=== PATIENT | male | born 1985 | race Caucasian/White ===

== ENCOUNTER 2019-05-30 09:52 | Day surgery (SDC) | payer OTHER ==
[~2019-05-30] VITALS: Ht 190.5 cm; Wt 154.1 kg
[~2019-05-30 09:52] MED LIST: BENA20TA PO; NS 1,000 ML IV ONE; PROP120C PO; VITA100054 PO
[2019-05-30] MEDS ORDERED: fentaNYL 100 MCG/2 ML INJECTION (J3010) As Ordered ONE (11:02)
[2019-05-30] MEDS ORDERED: propofoL 500 MG/50 ML VIAL As Ordered ONE (11:04)
[2019-05-30] MEDS ORDERED: LIDOCAINE 2% INJ 100 MG/5 ML SDV (FOR ANES.) As Ordered ONE (11:47)
--- NOTE | 2019-05-30 12:32 | ROOR ---
Patient Name: William Veloz Procedure Date: 05/30/2019 12:14 PM Date of : 1985 Age: 33 Room: [facility] Gender: Male Note Status: Finalized Procedure: Upper Endoscopy + Biopsies Indications: Heartburn, Exclusion of Ag's esophagus, Diarrhea Providers: Garrison Allen MD Referring MD: Natali VALENTIN [facility] Natali VALENTIN [facility], Admin. Requesting Provider: Medicines: Monitored Anesthesia Care Complications: No immediate complications. Procedure: Pre-Anesthesia Assessment: - The heart rate, respiratory rate, oxygen saturations, blood pressure, adequacy of pulmonary ventilation, and response to care were monitored throughout the procedure. The Endoscope was introduced through the mouth, and advanced to the second part of duodenum. The upper GI endoscopy was accomplished without difficulty. The patient tolerated the procedure well. Findings: The Z-line was irregular and was found 40 cm from the incisors. Multiple biopsies were obtained with cold forceps for evaluation to rule out Ag's Esophagus randomly at the gastroesophageal junction. Esophagitis with no bleeding was found 40 cm from the incisors. The exam of the stomach was otherwise normal. Biopsies were taken with a cold forceps in the gastric antrum for Helicobacter pylori testing. The exam of the duodenum was otherwise normal. Biopsies for histology were taken with a cold forceps in the first portion of the duodenum for evaluation of celiac disease. The exam was otherwise without abnormality. Impression: - Z-line irregular, 40 cm from the incisors. - Reflux esophagitis. - The examination was otherwise normal. - Multiple biopsies were obtained at the gastroesophageal junction. - Biopsies were taken with a cold forceps for Helicobacter pylori testing. - Biopsies were taken with a cold forceps for evaluation of celiac disease. - The examination was otherwise normal. Recommendation: - Patient has a contact number available for emergencies. The signs and symptoms of potential delayed complications were discussed with the patient. Return to normal activities tomorrow. Written discharge instructions were provided to the patient. - High fiber diet. - Discharge patient to home. - Follow an antireflux regimen. - Continue present medications. - Await pathology results. - Telephone GI clinic for pathology results in 1 week. - Return to referring physician. - The findings and recommendations were discussed with the patient's family. Garrison Allen MD Garrison Allen MD 05/30/2019 12:31:46 PM Electronically signed by Garrison Allen MD Number of Addenda: 0 Note Initiated On: 05/30/2019 12:14 PM Estimated Blood Loss: Estimated blood loss: none.
[2019-05-30] MEDS ORDERED: hydrALAZINE INJ 20 MG/ML VIAL As Ordered ONE (12:35)
--- NOTE | 2019-05-30 12:47 | ROOR ---
Patient Name: William Veloz Procedure Date: 05/30/2019 12:15 PM Date of : 1985 Age: 33 Room: [facility] Gender: Male Note Status: Finalized Procedure: Total Colonoscopy to Cecum + ileoscopy + Bx Indications: Clinically significant diarrhea of unexplained origin Providers: Garrison Allen MD Referring MD: Natal[facility] VALENTIN [facility] Natali VALENTIN [facility], Admin. Requesting Provider: Medicines: Monitored Anesthesia Care Complications: No immediate complications. Procedure: Pre-Anesthesia Assessment: - The heart rate, respiratory rate, oxygen saturations, blood pressure, adequacy of pulmonary ventilation, and response to care were monitored throughout the procedure. The Colonoscope was introduced through the anus and advanced to the cecum, identified by appendiceal orifice and ileocecal valve. The colonoscopy was performed without difficulty. The patient tolerated the procedure well. The quality of the bowel preparation was excellent. Findings: The perianal and digital rectal examinations were normal. Non-bleeding internal hemorrhoids were found during retroflexion. The hemorrhoids were small and Grade I (internal hemorrhoids that do not prolapse). Scattered small-mouthed diverticula were found in the recto-sigmoid colon, sigmoid colon and descending colon. The terminal ileum appeared normal. Biopsies for histology were taken with a cold forceps from the cecum, right colon, transverse colon and descending colon for evaluation of microscopic colitis. The exam was otherwise without abnormality on direct and retroflexion views. Impression: - Non-bleeding internal hemorrhoids. - Diverticulosis in the recto-sigmoid colon, in the sigmoid colon and in the descending colon. - The examined portion of the ileum was normal. - The examination was otherwise normal on direct and retroflexion views. - Biopsies were taken with a cold forceps from the cecum, right colon, transverse colon and descending colon for evaluation of microscopic colitis. - The exam was otherwise normal to the cecum. Recommendation: - Patient has a contact number available for emergencies. The signs and symptoms of potential delayed complications were discussed with the patient. Return to normal activities tomorrow. Written discharge instructions were provided to the patient. - Resume previous diet. - Discharge patient to home. - Continue present medications. - Await pathology results. - Telephone GI clinic for pathology results in 1 week. - Return to referring physician. - The findings and recommendations were discussed with the patient's family. Garrison Allen MD Garrison Allen MD 05/30/2019 12:46:42 PM Electronically signed by Garrison Allen MD Number of Addenda: 0 Note Initiated On: 05/30/2019 12:15 PM Estimated Blood Loss: Estimated blood loss: none.
[2019-05-30 13:10] VITALS: BP 182/98
== END 2019-05-30 13:24 | disposition home or self-care (01) ==
LOC: M OPP 09:52
PROVIDERS: ATTEND Internal Medicine Gastroenterology
DX: K64.8 Other hemorrhoids (principal); K57.30 Diverticulosis of large intestine without perforation or abscess without bleeding; R19.7 Diarrhea, unspecified; K22.8 Other specified diseases of esophagus; K21.0 Gastro-esophageal reflux disease with esophagitis; R12 Heartburn; K29.50 Unspecified chronic gastritis without bleeding; Z79.899 Other long term (current) drug therapy
CPT/HCPCS: 43239; 45380; 88305; J3010

== ENCOUNTER → 2019-11-21 | Outpatient (CLI) | payer OTHER ==
[~2019-11-21] MED LIST changes: -NS 1,000 ML IV ONE
--- NOTE | 2019-11-21 23:27 | REP ---
FOOT: REASON: Atraumatic pain. PRIORS: None. FINDINGS: The joint spaces are symmetric and relatively well maintained. There is no evidence of acute fracture or destructive osseous lesion. IMPRESSION: Negative. There is a minimal retrocalcaneal heel spur. Electronically Signed by Darek Katz DO 11/22/2019 08:08 A
== END ==
LOC: M ADAMS 13:59
PROVIDERS: ATTEND Family Medicine
DX: M77.31 Calcaneal spur, right foot (principal)

== ENCOUNTER 2020-09-18 18:48 | Emergency (ER) | payer OTHER ==
[~2020-09-18] VITALS: Ht 190.5 cm; Wt 147.6 kg
[2020-09-18 21:13] LABS: BASO % 0.2 % (0.0-1.0); EOS # 0.1 10^3/uL (0.0-0.5); EOS % 0.9 % (0.0-3.0); HEMATOCRIT 48.4 % (42.0-52.0); HEMOGLOBIN 15.7 g/dl (13.5-17.5); LYMPH % 35.9 % (24.0-44.0); MEAN CORPUSCULAR HEMOGLOBIN 27.5 pg (27.0-33.0); MEAN CORPUSCULAR HGB CONC 32.4 g/dl (32.0-36.5); MEAN CORPUSCULAR VOLUME 84.9 fl (80.0-96.0); MONO # 0.4 10^3/uL (0.0-0.8); MONO % 7.2 % (2.0-8.0); NEUTROPHILS # 3.1 10^3/uL (1.5-8.5); NEUTROPHILS % 55.4 % (36.0-66.0); PLATELET COUNT, AUTOMATED 164 10^3/uL (150-450); WHITE BLOOD COUNT 5.7 10^3/uL (4.0-10.0)
[2020-09-18 21:47] LABS: BLOOD UREA NITROGEN 16 MG/DL (7-18); CALCIUM LEVEL 8.9 MG/DL (8.5-10.1); CARBON DIOXIDE LEVEL 28 MEQ/L (21-32); CHLORIDE LEVEL 104 MEQ/L (98-107); CREATININE FOR GFR 1.33 MG/DL (0.70-1.30); GLOMERULAR FILTRATION RATE > 60.0 (>60); GLUCOSE, FASTING 91 MG/DL (70-100); POTASSIUM SERUM 4.4 MEQ/L (3.5-5.1); SODIUM LEVEL 137 MEQ/L (136-145)
--- NOTE | 2020-09-18 23:04 | REPVR ---
PROCEDURE INFORMATION: Exam: XR Chest Exam date and time: 09/18/2020 9:36 PM Age: 35 years old Clinical indication: Other: SOB TECHNIQUE: Imaging protocol: XR of the chest. Views: 1 view. COMPARISON: No relevant prior studies available. FINDINGS: Lungs: Unremarkable. No consolidation. Pleural spaces: Unremarkable. No pleural effusion. No pneumothorax. Heart/Mediastinum: Unremarkable. No cardiomegaly. Bones/joints: Unremarkable. IMPRESSION: No acute findings. Electronically signed by: Meet Snow On 09/18/2020 23:04:05 PM
[2020-09-19 00:29] VITALS: BP 151/91
== END 2020-09-19 00:40 | disposition home or self-care (01) ==
LOC: M ED 18:48
DX: U07.1 COVID-19 (principal); I10 Essential (primary) hypertension; G47.33 Obstructive sleep apnea (adult) (pediatric); F41.9 Anxiety disorder, unspecified; Z79.899 Other long term (current) drug therapy

== ENCOUNTER 2020-09-18 23:17 | Outpatient (CLI) | payer OTHER ==
[~2020-09-18] VITALS: Ht 190.5 cm; Wt 147.3 kg
--- NOTE | 2020-09-18 23:24 | HPEPDOC ---
[facility] Medical History & Physical Date of Admission September 18, 2020 Date of Service: September 18, 2020 Primary Care Physician: GRETEL POND DO Attending Physician: CLAUDE BACON MD History and Physical TIME OF SERVICE: 11:47 CHIEF COMPLAINT: sent by PCP HISTORY OF PRESENT ILLNESS: This 35 yr old M developed FUCHS, cough, chest tightness, dyspnea, nausea and vomiting was diagnosed with COVID 19 about 9 days ago; his symptoms have not resolved; today his PCP called him and instructed him to come to the ER for MAB infusion. ROS:see HPI PAST MEDICAL/SURGICAL HISTORY: Essential HTN Chronic back pain Obesity SOCIAL HISTORY:He doesn't smoke FAMILY HISTORY: DM &HTN ALLERGIES: Please see below. HOME MEDICATIONS: Please see below. PHYSICAL EXAMINATION: Vital Signs Date Time Temp Pulse Resp B/P (MAP) Pulse Ox O2 Delivery O2 Flow Rate FiO2 09/18/20 22:48 78 20 136/66 (89) 97 Room Air 09/18/20 18:48 96.7 GENERAL APPEARANCE: well nourished and developed/ NAD INTEGUMENT: not flushed or diaphoretic HEENT: EOMI MUSCULOSKELETAL: AKIN x 4 NEUROLOGICAL: speech not dysarthric PSYCHIATRIC: A&Ox 3 / able to understand and follow all commands LABORATORY DATA: CBC & CMP reviewed, unremarkable except from Cr 1.33 from baseline of 1.22 IMAGING: chest xray "IMPRESSION: No acute findings." MICROBIOLOGY: COVID 19 ASSESSMENT: is a 35 yr old w HTN and obesity who was diagnosed w COVID-19 9 days ago, has had persistent symptoms and was sent by his PCP for out pt MAB infusion. PLAN: 1. COVID 19 Jenaro Mccauley botained consent Plan: will place COVID order set Home Medications Scheduled Benazepril Hcl (Benazepril HCl) 20 Mg Tablet, 1 TAB PO DAILY Cholecalciferol (Vitamin D3) (Vitamin D3) 1,000 Unit Capsule, 1 CAP PO DAILY Propranolol HCl (Propranolol HCl ER) 120 Mg Cap.sa.24h, 1 CAP PO DAILY Allergies Coded Allergies: No Known Allergies (Unverified , 05/28/19) A-FIB/CHADSVASC A-FIB History Current/History of A-Fib/PAF?: No Current PO Anticoag Therapy: No CLAUDE BACON MD September 18, 2020 23:24
[2020-09-19] MEDS ORDERED: diphenhydrAMINE 50MG/ML VIAL (J1200) IV PRN (01:00)
[2020-09-19] MEDS ORDERED: EPINEPHrine INJ 1 MG/ML 1ML AMP IM PRN (01:00)
[2020-09-19] MEDS ORDERED: BAMLANIVIMAB 700 MG, ETESEVIMAB 1,400 MG in NS 250 ML IV ONE (01:00)
[2020-09-19] MEDS ORDERED: methylPREDNISolone 125MG 2ML VIAL IV PRN (01:00)
[2020-09-19] MEDS ORDERED: ALBUTEROL SULFATE 2.5 MG/0.5 ML INH NEB SOLN INH PRN (01:00)
[2020-09-19] MEDS ORDERED: ALBUTEROL 90 MCG/ACT 8GM HFA INHALER INH PRN (01:00)
[2020-09-19] MEDS ORDERED: NS 1,000 ML IV SCH (01:00)
[2020-09-19 01:08] VITALS: BP 123/73
[2020-09-19 02:00] VITALS: BP 121/62
[2020-09-19 02:30] VITALS: BP 119/65
[2020-09-19 03:00] VITALS: BP 120/63
[2020-09-19 04:17] VITALS: BP 109/63
== END 2020-09-19 04:31 | disposition home or self-care (01) ==
LOC: M OPCLI4 23:17 → M 4MAIN 09-19 00:39 → M OPCLI4 09-19 04:31
PROVIDERS: ATTEND Internal Medicine
DX: U07.1 COVID-19 (principal)

== ENCOUNTER 2021-12-24 10:06 | Emergency (ER) | payer OTHER ==
[~2021-12-24] VITALS: Ht 190.5 cm; Wt 154.0 kg
[2021-12-24 14:43] LABS: AMORPHOUS SEDIMENT, URINE LARGE AMOUNT (NEGATIVE); BACTERIA, URINE NONE SEEN; HYALINE CAST, URINE NONE SEEN /lpf (0-1); RBC, URINE NONE SEEN /hpf (0-3); SQUAMOUS EPITHELIAL CELL URINE SMALL AMOUNT /hpf (SMALL AMT)
[2021-12-24 15:15] VITALS: BP 155/100
[2021-12-24 15:45] LABS: GC DNA AMPLIFICATION NEGATIVE (NEGATIVE)
== END 2021-12-24 15:18 | disposition home or self-care (01) ==
LOC: M ED 10:06
DX: N50.812 Left testicular pain (principal); G89.29 Other chronic pain; M54.50 Low back pain, unspecified; I10 Essential (primary) hypertension; G47.33 Obstructive sleep apnea (adult) (pediatric); Z79.899 Other long term (current) drug therapy

== ENCOUNTER 2022-11-08 14:04 | Emergency (ER) | payer OTHER ==
[~2022-11-08] VITALS: Ht 190.5 cm; Wt 148.7 kg
[2022-11-08 14:04] VITALS: BP 142/95; TEMP 97.8; O2SAT 96
[2022-11-08] MEDS ORDERED: DICL20GE TP (19:12)
== END 2022-11-08 19:18 | disposition home or self-care (01) ==
LOC: M ED 14:04
DX: M25.462 Effusion, left knee (principal); M25.662 Stiffness of left knee, not elsewhere classified; G47.33 Obstructive sleep apnea (adult) (pediatric); M54.9 Dorsalgia, unspecified; Z79.899 Other long term (current) drug therapy

== ENCOUNTER → 2024-09-25 | Outpatient (REF) | payer OTHER ==
[~2024-09-25] MED LIST changes: +DICL20GE TP
== END ==
LOC: M SFHCADAM 16:43
PROVIDERS: ATTEND Family Medicine
DX: R35.0 Frequency of micturition (principal)